=== PATIENT | female | born 1975 | race Caucasian/White ===

== ENCOUNTER 2017-03-29 08:19 | Emergency (ER) | payer BC ==
[~2017-03-29] VITALS: Ht 160 cm; Wt 72.0 kg
[2017-03-29 08:21] VITALS: BP 152/85; PULSE 68; RESP 15; TEMP 98.3; O2SAT 99
[2017-03-29] MEDS ORDERED: OCUF0.3D EACH EYE (08:38)
[2017-03-29] MEDS ORDERED: HYDR-3533 PO (08:39)
--- NOTE | 2017-03-29 08:39 | PD ---
HPI Chief Complaint: Eye Problems/Injury Time Seen by Provider: 08:35 Travel History International Travel<30 days: No Contact w/Intl Traveler<30days: No Traveled to known affect area: No History of Present Illness HPI 41-year-old female presents to the emergency department for evaluation right irritation and eyelid swelling. Patient states that she swimming contacts yesterday. The eye became irritated. She removed the contact and I continued to kwadwo and become more irritated overnight. Her eye was crusted shut this morning. She noticed eyelid swelling. Patient states she has no acute visual changes but is unable to see without her contacts. Denies any foreign body sensation. No known injury. No fever or chills. She does not have her glasses at this time. She has no other symptoms to report. PFSH Past Medical History Medical History: Denies Significant Hx ?: Not LMP: now Social History Tobacco Use: No Allergies-Medications (Allergen,Severity, Reaction): Coded Allergies: No Known Allergies (Unverified , 03/29/17) Reported Meds & Prescriptions Reported Meds & Active Scripts Active Lortab (Hydrocodone-Acetaminophen) 5-325 Mg Tab 1 Tab PO Q6H PRN Ocuflox Opth Drops (Ofloxacin Opth Drops) 0.3 % Drops 1 Drop EACH EYE Q4HR 7 Days Review of Systems Except as stated in HPI: all other systems reviewed are Neg Physical Exam Narrative GENERAL: Well-nourished, well-developed female patient in no acute distress SKIN: Focused skin assessment warm/dry. HEAD: Normocephalic. EYES: No scleral icterus. EOMI. PERRL Injection of the right eye. No foreign body identified. No increased uptake under fluorescein examination. The superior eyelid is mildly edematous of crusting along the eyelashes.. NECK: Supple, trachea midline. No JVD or lymphadenopathy. CARDIOVASCULAR: Regular rate and rhythm without murmurs, gallops, or rubs. RESPIRATORY: Breath sounds equal bilaterally. No accessory muscle use. Data Data Last Documented VS Vital Signs Date Time Temp Pulse Resp B/P Pulse Ox O2 Delivery O2 Flow Rate FiO2 03/29/17 08:21 98.3 68 15 152/85 99 Orders Acetamin-Hydrocod 325-5 Mg ([place] 5-325 (03/29/17 08:45) [facility] Medical Decision Making Medical Screen Exam Complete: Yes Emergency Medical Condition: Yes Medical Record Reviewed: Yes Differential Diagnosis Conjunctivitis versus blepharitis versus corneal abrasion versus foreign body Narrative Course 41-year-old female presents to emergency department for evaluation right eye irritation. Physical exam is consistent with a blepharoconjunctivitis. Patient will be prescribed antibiotic drops. She is encouraged follow-up with wedding day coordinator. I have instructed her to not wear her contacts while her eye is healing. She agrees to return immediately with any acute worsening symptoms. Diagnosis Primary Impression: Conjunctivitis Qualified Code: H10.531 - Contact blepharoconjunctivitis of right eye Referrals: Primary Care Physician Patient Instructions: Conjunctivitis (ED), General Instructions Additional Instructions: Avoid rubbing her eye Frequent handwashing Do not wear your contacts Follow-up with a primary care provider Return immediately with any acute worsening symptoms Med/Other Pt SpecificInfo: Prescription(s) given Scripts Hydrocodone-Acetaminophen (Lortab)5-325 Mg Tab1 Tab PO Q6H PRN (PAIN) #6 TAB Ref 0 Prov:Pily Willson 03/29/17 Ofloxacin Opth Drops (Ocuflox Opth Drops)0.3 % Drops1 Drop EACH EYE Q4HR 7 Days Ref 0 Prov:Pily Willson 03/29/17 Disposition: 01 DISCHARGE HOME Condition: Stable Pily Willson Mar 29, 2017 08:39
[2017-03-29] MEDS ORDERED: ACETAMINOPHEN/HYDROcodone 325 MG/5 MG TAB PO ONE (08:45)
== END 2017-03-29 08:54 | disposition home or self-care (01) ==
LOC: NEPK 08:19
DX: H10.9 Unspecified conjunctivitis (principal); Z79.899 Other long term (current) drug therapy
CPT/HCPCS: 99284